=== PATIENT | male | born 1980 | race African-American/Black ===

== ENCOUNTER 2017-07-07 09:51 | Inpatient (IN) | payer BC ==
[~2017-07-07] VITALS: Ht 170.2 cm; Wt 102.0 kg
--- NOTE | ~2017-07-07 | CT16 ---
[facility] A Service of [facility] & [facility] RADIOLOGY TEXT RESULTS PATIENT: LURDES VANEGAS LOCATION: C3A 306-01 : [birth year] UNIT #: [id number] AGE: [address]: Abhay Sewell MD SEX: M ORDER DR: [id number] [facility] [address] [place], [place] [address] [id number] MR#: [id number] Acc #: [id number] NAME: LURDES VANEGAS : 1980 SEX: M STUDY DATE/TIME: 07/07/2017 UNIT: C3A PCU ROOM: 306 STUDY DESCRIPTION: CT Angio Chest for PE Attending Physician: Abhay Sewell M.D. Ordering Physician: Summer Samuel M.D. Primary Care Physician: Primary Care Physician No MEDICAL IMAGING REPORT This report is preliminary unless electronic signature is present EXAM CT angiogram of the chest with PE protocol 07/07/2017 1204 hours HISTORY 37-year-old man with complaint of leg pain for 2 weeks with shortness of air and chest pain for 2 days. Evaluate for pulmonary embolism. COMPARISON Chest film 07/07/2017. TECHNIQUE Dynamic helical CT angiographic images were obtained from the thoracic inlet through the adrenal glands. 3-D sagittal and coronal reconstructions were performed. Contrast was Isovue-370 80 mL IV. Total exam DLP 693 mGy-cm. This CT examination was performed with one or more of the following radiation dose reduction techniques: automatic exposure control, adjustment of mA and/or kV according to patient size, and iterative reconstruction. FINDINGS Images through the thoracic inlet demonstrate no thyroid mass or enlargement. There is no supraclavicular adenopathy. Images through the chest demonstrate diagnostic quality opacification of the pulmonary arteries. The images are slightly degraded by respiratory motion artifact. Pulmonary arteries are normal in caliber. There are no filling defects seen to suggest the presence of pulmonary emboli. The aorta is not well opacified but is normal in caliber. Cardiac chambers are enlarged.Pericardium and esophagus appear normal. There is no pathologic adenopathy. There are tiny superior and anterior mediastinal lymph nodes all measuring less than 5 mm felt likely benign. Lung window images demonstrate moderate underlying centrilobular emphysema STS. [facility] A Service of [facility] & [facility] RADIOLOGY TEXT RESULTS PATIENT: LURDES VANEGAS LOCATION: C3A 306-01 : [birth year] UNIT #: [id number] AGE: [address]: Abhay Sewell MD SEX: M ORDER DR: with patchy ground-glass and linear densities in the upper, mid and lower lungs. Findings suggest the presence of infection and/or edema. There is no dense consolidation or pleural fluid. Limited views through the upper abdomen demonstrate no liver or splenic lesion. The adrenal glands are normal. IMPRESSION 1. No evidence of pulmonary embolism. Normal caliber aorta. 2. Cardiac chambers are enlarged. No pericardial or pleural fluid. 3. The lungs demonstrate underlying emphysematous change with mosaic pattern of lucency. There are patchy ground-glass and linear changes throughout both lungs involving the upper, mid and lower lungs. The appearance favors edema over infection. No pleural effusion. STAT * RESULT Dictated by... Rachel Gillespie M.D. THIS IS AN ELECTRONICALLY VERIFIED REPORT Rachel Gillespie M.D. at 07/08/2017 1:49 PM BARRIE/simone TD: 07/07/2017 12:36 JOB #: [id number] MEDICAL IMAGING REPORT Page 1 of 1 COPY
--- NOTE | ~2017-07-07 | CR72 ---
[facility] A Service of [facility] & [facility] RADIOLOGY TEXT RESULTS PATIENT: LURDES VANEGAS LOCATION: [facility] 306-01 : [birth year] UNIT #: [id number] AGE: [address]: Abhay Sewell MD SEX: M ORDER DR: [id number] [facility] [address] [place] [address] [place], [place] [address] [id number] I MR#: [id number] Acc #: [id number] NAME: LURDES VANEGAS : 1980 SEX: M STUDY DATE/TIME: 07/07/2017 10:29 UNIT: C3A U ROOM: 306 STUDY DESCRIPTION: CR Chest Single View Portable Attending Physician: Abhay Sewell M.D. Ordering Physician: Summer Samuel M.D. Primary Care Physician: Primary Care Physician No MEDICAL IMAGING REPORT This report is preliminary unless electronic signature is present EXAM Portable chest 07/07 INDICATIONS Shortness of air and chest pain and left leg pain for 2 weeks. TECHNIQUE AP portable views of the chest were obtained COMPARISON No comparison FINDINGS Heart is enlarged. There is pulmonary edema. No pneumothorax is seen. IMPRESSION Cardiomegaly and pulmonary edema. Dictated by... Tomas Lorenzo Jr., M.D. THIS IS AN ELECTRONICALLY VERIFIED REPORT Tomas Lorenzo Jr., M.D. at 07/08/2017 8:29 AM RLK/sharri TD: 07/07/2017 18:48 JOB #: [id number] MEDICAL IMAGING REPORT Page 1 of 1 COPY
--- NOTE | ~2017-07-07 | HP ---
Unit #: [id number] #: [id number] Patient: LURDES VANEGAS [id number] [address] [place], [place] [address] [id number] MR#: [id number] NAME: LURDES VANEGAS ROOM: 52740 Age: 37 Sex: M Admission Date: 07/07/2017 : 1980 Attending Physician: Abhay Sewell M.D. HISTORY AND PHYSICAL CHIEF COMPLAINT Chest pain and left lower extremity pain. HISTORY OF PRESENT ILLNESS This is a 37-year-old male with a prior history of diabetes mellitus, hypertension, tobacco abuse, obstructive sleep apnea, and cocaine abuse. He has been seen in multiple ERs in the last two months for lower extremity pain. He was seen in [facility] ER on July 01 for left lower extremity pain, and at that time venous Doppler of the left lower extremity was negative for DVT. He also has a history of CHF with a hospital admission reportedly in May 2017 at [facility] for CHF. Per the patient, he underwent a cardiac cath at [facility] in [place], [place], in January 2017 which showed normal coronary arteries and a "weakened" heart. He presented to the ER with reports of left leg pain ongoing for two weeks and intermittent chest pains described as sharp, stabbing left chest pains occurring at rest. The chest pains were accompanied with nausea and diaphoresis. He denies radiating pains or shortness of breath. The pains resolved spontaneously within minutes. He also reports increasing shortness of breath with dyspnea on exertion, as well as orthopnea and PND. He denies abdominal swelling or lower extremity edema. His BNP in the ER is 156. Chest x-ray showed cardiomegaly with pulmonary edema. A CT of the chest was negative for PE but did show pulmonary edema with cardiomegaly. His troponin was negative for ischemia. EKG revealed some tachycardia with nonspecific T wave abnormalities but no acute ischemic changes. His blood pressure was elevated in the ER at 160/103 to 157/115. He was started on a nitroglycerin drip, and his blood pressure has improved into the 150s/80s. 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 He has not been taking medications. PAST MEDICAL HISTORY 1. Diabetes mellitus. 2. Hypertension. 3. Tobacco abuse. 4. History of cocaine abuse. 5. Obstructive sleep apnea, does not use CPAP. 6. Left lower extremity pain with a negative venous Doppler July 01, 2017, at outside hospital. 7. CHF with recent admission to [facility] in May 2017 per patient (records currently not available). 8. Cardiac cath January 2017 with normal coronaries and weak heart per Unit #: [id number] #: [id number] Patient: LURDES VANEGAS patient (records currently not available). 9. Medical noncompliance. PAST SURGICAL HISTORY He had a cardiac cath in January 2017. SOCIAL HISTORY He lives with his significant other. He rarely drinks alcohol. He smokes one-half pack per day. He states he last used cocaine six to eight months ago. FAMILY HISTORY He denies a family history of premature coronary artery disease. ALLERGIES No known drug allergies. HOME MEDICATIONS No home medications per patient. REVIEW OF SYSTEMS A 10-point review of systems was conducted and is otherwise negative except for what was stated in the HPI. PHYSICAL EXAMINATION VITAL SIGNS: Temperature 98.4, heart rate 111, respiratory rate 24, blood pressure 140/66. GENERAL: This is a 37-year-old male resting in bed in no acute distress. HEENT: Head is atraumatic and normocephalic. Pupils are equal and reactive to light. Mucous membranes are moist and intact. NECK: Supple. Trachea is midline. No JVD. LUNGS: Clear and diminished in bases. Nonlabored respirations. CARDIOVASCULAR: S1 and S2, regular rate and rhythm. No significant murmurs, rubs, or gallops. ABDOMEN: Soft, nontender, nondistended. Positive bowel sounds. EXTREMITIES: Pulses are palpable. No pedal edema. Left lower leg tenderness from thigh to ankle is present. NEUROLOGIC: Drowsy, but easily arousable. Oriented x3. Moves all extremities and follows commands without difficulty. DIAGNOSTIC STUDIES LABORATORY: Sodium 135, potassium 4.4, chloride 101, BUN 11, creatinine 1, glucose 335. Hemoglobin 15.2, hematocrit 44.7, white blood cell count 10.7, platelets 263,000. TSH 1.82. AST 32, ALT 35, alkaline phosphatase 89. Lipid profile: Cholesterol 146, triglycerides 61, LDL 94, HDL 40. BNP 156. Point of care troponin less than 0.05. Urinalysis had greater than 1000 glucose. Urine tox was negative. IMAGING: Chest x-ray showed cardiomegaly with pulmonary edema. CT of the chest was negative for PE and showed cardiomegaly with pulmonary edema. CARDIOLOGY: EKG showed sinus tachycardia with nonspecific T wave abnormalities. ASSESSMENT 1. Acute on chronic congestive heart failure, mild. 2. Chest pain with reportedly normal coronaries by catheterization in Unit #: [id number] #: [id number] Patient: LURDES VANEGAS January 2017 (records currently not available). 3. Hypertension, uncontrolled. 4. Diabetes mellitus, uncontrolled. 5. Left leg pain. 6. Tobacco abuse. PLAN He is currently chest pain free. He is on a nitroglycerin drip for elevated blood pressures. We will discontinue the nitroglycerin drip. Start beta jordana and SHARAD inhibitor. Consider nitrate if chest pain reoccurs. We will gently diurese, although he is only mildly fluid overloaded. Check echo and trend enzymes. Obtain cath results from outlying hospital. We will maintain strict I/Os and daily weights. Dictated by Jagruti Jesnen APRN for Abhay Sewell M.D. MARIYA/ian TD: 07/07/2017 16:34 JOB #: [id number] HISTORY AND PHYSICAL Page 1 of 1 X X HISTORY AND PHYSICAL
--- NOTE | ~2017-07-07 | EKG ---
PATIENT: ULRDES VANEGAS UNIT #: [id number] Ventricular Rate: 114 BPM Atrial Rate: 114 BPM P-R Interval: 142 ms QRS Duration: 88 ms Q-T Interval: 344 ms QTC Calculation(Bezet): 474 ms P [place]: 71 degrees Calculated R [place]: -29 degrees Calculated T [place]: 88 degrees Diagnosis Line: Sinus tachycardia Diagnosis Line: Nonspecific T wave abnormality Diagnosis Line: Abnormal ECG Diagnosis Line: No previous ECGs available Diagnosis Line: Confirmed by RADHA BLAIR MD ([id number]) on Diagnosis Line: 07/09/2017 10:49:33 AM INTERPRETING MD: ROSSY KUMAR
--- NOTE | ~2017-07-07 | DS ---
Unit #: [id number] #: [id number] Patient: LURDES VANEGAS [id number] [address] [address] [id number] MR#: [id number] NAME: LURDES VANEGAS ROOM: 306 Age: 37 Sex: M Admission Date: 07/07/2017 : 1980 Discharge Date: 07/11/2017 Attending Physician: Abhay Sewell M.D. Primary Care Physician: Primary Care Physician No DISCHARGE SUMMARY REASON FOR CONSULTATION Diabetes management. HISTORY OF PRESENT ILLNESS The patient is a 37-year-old male with a past medical history of diabetes, hypertension, tobacco abuse, obstructive sleep apnea, cocaine abuse, and with history of acute on chronic CHF, being admitted to the Cardiology Service and Medicine consult has been placed for the diabetes management. The patient has a history of diabetes since 2007 and was on Lovenox and NovoLog. However, the patient stopped taking those medications for the last few months. The patient also complains of the pain in the left lower extremity mainly in the back of the thigh and the back of the calf muscles. The patient had a venous Doppler that is negative for DVT. PAST MEDICAL HISTORY History of diabetes, hypertension, tobacco abuse, history of cocaine abuse, obstructive sleep apnea. PAST SURGICAL HISTORY Cardiac cath in January 2017. SOCIAL HISTORY Lives with his significant other. He rarely drinks alcohol. He smokes one-half pack per day. He states last cocaine was 6 to 8 months ago. FAMILY HISTORY Denies any history of coronary artery disease. ALLERGIES No known drug allergies. HOME MEDICATIONS No medications per patient. REVIEW OF SYSTEMS Positive for the leg pain. Positive for the numbness and tingling in the left lower extremities and all other systems have been reviewed are negative. Positive for chest pain. Positive for shortness of air. PHYSICAL EXAMINATION GENERAL: The patient is lying on bed, not in acute distress. VITAL SIGNS: Temperature is 98, blood pressure is 145/89, pulse is 85, Unit #: [id number] #: [id number] Patient: LURDES VANEGAS respirations 20. HEENT: Head, atraumatic, normocephalic. Pupils are equal, round, and reactive to light and accommodation. Extraocular movements are intact. NECK: Positive for JVD. Neck is supple. LUNGS: Diffuse air entry at the bases. Positive for rales. HEART: Positive for regular rate and rhythm. Positive for the murmur. ABDOMEN: Soft. Positive bowel sounds. EXTREMITIES: No cyanosis. No clubbing. No edema. NEUROLOGIC: Alert, awake, and oriented. No gross focal motor deficit. DIAGNOSTIC STUDIES LABORATORY RESULTS: Sugar is running 246 to 242 and sodium is 138, potassium 4.2, chloride 104, bicarb 25, glucose 252, BUN 23, creatinine 0.8, calcium 9.7. CBC: WBC 11.9, hemoglobin 15.7, hematocrit 46.9, platelets 269. ASSESSMENT 1. Nonischemic cardiomyopathy. 2. Uncontrolled diabetes mellitus. PLAN Continue with Lasix drip and continue with high dose sliding scale and we will add the Lantus at bedtime, then we will titrate up with sugars. Check the hemoglobin A1c and we will add, for neuropathy likely secondary to uncontrolled diabetes, with Neurontin and further recommendations will follow. Dictated by... Pura Rider/madison TD: 07/12/2017 06:00 JOB #: [id number] DISCHARGE SUMMARY Page 1 of 1 X TATYANA TAYLOR MD X DISCHARGE SUMMARY
--- NOTE | ~2017-07-07 | DS ---
Unit #: [id number] #: [id number] Patient: LURDES VANEGAS [id number] [address] [place], [place] [address] [id number] I MR#: [id number] NAME: LURDES VANEGAS ROOM: 306 Age: 37 Sex: M Admission Date: 07/07/2017 : 1980 Discharge Date: 07/11/2017 Attending Physician: Abhay Sewell M.D. DISCHARGE SUMMARY DISCHARGE DIAGNOSES 1. Acute on chronic systolic congestive heart failure, now compensated. 2. Normal coronary arteries per recent cardiac catheterization in January 2017. Ejection fraction 10% to 15%. 3. A 2D echocardiogram on July 07, 2017, revealed an ejection fraction of 15% to 20%, severe generalized hypokinesis of the LV, moderate LVH, restrictive physiology with grade 3 diastolic dysfunction, mild mitral regurgitation, mild aortic regurgitation, trace pulmonic regurgitation. 4. Hypertension. 5. Diabetes mellitus type 2, uncontrolled. 6. Obstructive sleep apnea. 7. Left leg pain probably from neuropathy. 8. Noncompliance. 9. History of cocaine abuse. DISCHARGE MEDICATIONS 1. Metoprolol tartrate 50 mg p.o. b.i.d. 2. Furosemide 40 mg p.o. in the morning and 20 mg at night. 3. Lovastatin 20 mg p.o. at bedtime. 4. Levemir 10 units subcutaneous b.i.d. 5. Aspirin 81 mg p.o. daily. 6. Lisinopril 10 mg p.o. daily, start on July 12, 2017. 7. Potassium chloride 20 mEq p.o. daily. 8. Metformin 500 mg p.o. b.i.d. HOSPITAL COURSE This is a 37-year-old male with a past medical history of hypertension, diabetes, obstructive sleep apnea, cocaine abuse, and tobacco abuse. He has been admitted to the hospital multiple times recently for lower extremity pain. He was seen at [facility] on July 01, 2017, with left lower extremity pain. Venous Doppler was negative for DVT. He also has a history of congestive heart failure. He was seen at [facility] in May 2017 for congestive heart failure. Previous to that, he had a cardiac catheterization at [facility] in [place], [place], in January 2017, which revealed normal coronary arteries per documentation. The patient presented to the emergency department on July 07, 2017, with complaints of left leg pain for two weeks and intermittent chest pain described as sharp, stabbing pain. BNP was 156. Chest x-ray revealed cardiomegaly with some pulmonary edema. CT of the chest of negative for PE but did show pulmonary edema. Initial cardiac enzymes were negative. EKG revealed sinus tachycardia but nonspecific ST and T wave changes. Unit #: [id number] #: [id number] Patient: LURDES VANEGAS Blood pressure was elevated on arrival at 160/103 mmHg. He was initially started on nitroglycerin drip. His blood pressure improved. He was diuresed for acute on chronic congestive heart failure. A 2D echo was obtained on July 07, 2017, and revealed an ejection fraction of 15% to 20%. Please see further details as noted above. He was started on Entresto, but there were issues with insurance and cost, and therefore, the Entresto was discontinued. He was placed on lisinopril instead. He is on a beta jordana. His diuretics have been changed to oral dosing. He has diuresed well, and his volume status is stable. His hemoglobin A1c was elevated at 13.1. The hospitalist was consulted, and he was started on sliding scale protocol. His long-acting insulin was increased. Upon discharge, he has been started on metformin and long-acting insulin. Glucose levels remain high but are improved. Creatinine is 1 with a BUN of 19. Magnesium is 1.9. Serial cardiac enzymes were negative. He has ambulated without complaints and will be discharged home. A LifeVest has been ordered but is pending approval. He has been encouraged to be compliant with medications and followup. He will need repeat 2D echocardiogram in the office in three months. If his ejection fraction is less than or equal to 35%, he should be evaluated for an AICD. Of note, the patient does not have any money to fill his medications. The case management assistant has been consulted, and he will be gifted with medications until he can follow up. DIAGNOSTIC STUDIES LABORATORY: White blood cell count 10.9, hemoglobin 16.9, hematocrit 49.8, platelets 315,000. Sodium 135, potassium 4.1, chloride 100, CO2 of 27, BUN 19, creatinine 1, glucose 315, magnesium 1.9. INR 1. AST 32, ALT 35, alkaline phosphatase 89. Troponin 0.04 and 0.05. BNP 156. A1c 13.1. Total cholesterol 146, triglycerides 61, LDL 94, HDL 40. IMAGING: CT of the chest revealed no PE. Emphysema. Pulmonary edema. Chest x-ray on July 07 revealed pulmonary edema and cardiomegaly. CARDIOLOGY: EKG revealed sinus tachycardia with nonspecific ST and T wave changes. TREE CUTTER Dr. Eason with HIPS. PHYSICAL EXAMINATION GENERAL: This is a 37-year-old male in no acute distress. SKIN: Warm and dry. NECK: Supple. No jugular vein distention. No hepatojugular reflux. Normal carotid upstrokes. No carotid bruits auscultated. HEART: S1 and S2. Regular rate and rhythm. No murmurs, rubs, or gallops. LUNGS: Bilateral breath sounds have good air entry through all lung hernandez. Respirations even and nonlabored. No rales, rhonchi, or wheezes. ABDOMEN: Soft, nontender, and nondistended. Positive bowel sounds auscultated x4 quadrants. No ascites noted. EXTREMITIES: Bilateral lower extremities have trace pretibial pitting edema. DP and PT pulses 2+. Capillary refill less than 3 seconds. DISCHARGE INSTRUCTIONS 1. The patient will be discharged home today. Unit #: [id number] #: [id number] Patient: LURDES VANEGAS 2. Follow up with primary care provider in one to two weeks. 3. Follow up with Dr. Sewell in two to four weeks. 4. LifeVest pending insurance approval. 5. CHF education provided including fluid restriction, low sodium, and daily weights. The patient has been instructed to call for weight gain greater than three pounds, worsening shortness of breath, or lower extremity edema. 6. 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 7. He will need a hemoglobin A1c in three months. 8. He will need a 2D echocardiogram in three months to reassess LV function. 1. Dictated by... Chiqui Cunningham APRN for Pura Vargas/ian TD: 07/18/2017 18:29 JOB #: [id number] DISCHARGE SUMMARY Page 1 of 1 X X DISCHARGE SUMMARY
[2017-07-07 10:43] LABS: BASOPHIL# 0.2 X10e3 (0-0.3); BASOPHIL% 1.5 % (0-2.5); EOSINOPHIL# 0.3 X10e3 (0-0.7); HEMATOCRIT 44.7 % (38.0-50.0); HEMOGLOBIN 15.2 gm/dL (13.0-16.0); LYMPHOCYTE# 2.4 X10e3 (1.0-3.5); LYMPHOCYTE% 22.6 % (17.0-45.0); MEAN CELL VOLUME 86.9 FL (83-96); MEAN CORPUSCULAR HEMOGLOBIN 29.5 PG (28-34); MEAN CORPUSCULAR HGB CONC 33.9 g/dL (30-36); MEAN PLATELET VOLUME 8.8 FL (6.5-11.5); MONOCYTE# 0.6 X10e3 (0-1.0); MONOCYTE% 5.5 % (3.0-12.0); NEUTROPHIL# 7.2 X10e3 (1.5-7.1); NEUTROPHIL% 67.4 % (40-75); PLATELET COUNT 263 X10e3 (140-420); RED BLOOD COUNT 5.14 X10e (3.90-5.60); RED CELL DISTRIBUTION WIDTH 12.6 % (11.0-15.5); WHITE BLOOD COUNT 10.7 X10e3 (4.0-10.5)
[2017-07-07 10:48] LABS: DIFF IND NO
[2017-07-07 11:05] LABS: PARTIAL THROMBOPLASTIN TIME 29.8 SECONDS (23.5-31.3); PROTHROMBIN TIME (PATIENT) 11.2 SECONDS (10.0-11.7)
[2017-07-07 11:27] LABS: ALBUMIN SERUM 4.2 g/dL (3.5-5.0); BILIRUBIN, DIRECT 0.3 mg/dL (0.0-0.2); BILIRUBIN,INDIRECT 0.9 mg/dL (0.0-0.9); BILIRUBIN,TOTAL 1.2 mg/dL (0.2-2.0); CALCIUM SERUM 9.3 mg/dL (8.4-10.2); MAGNESIUM 1.6 mg/dL (1.6-3.0); POTASSIUM 4.4 mmol/L (3.5-5.1); PROTEIN TOTAL SERUM 7.1 g/dL (6.0-8.3)
[2017-07-07] MEDS ORDERED: NO MEDICATIONS (11:47)
[2017-07-07 11:48] LABS: POC - CKMB 1.6 ng/mL (0.0-7.9); POC - TROPONIN <0.05 ng/mL (<=0.05)
[2017-07-07 11:51] LABS: URINE SOURCE CLEAN CATCH
[2017-07-07 12:01] LABS: URINE APPEARANCE CLEAR; URINE BILIRUBIN NEG (NEG); URINE BLOOD NEG (NEG); URINE COLOR YELLOW; URINE GLUCOSE >1000 MG/DL (NEG); URINE KETONE NEG (NEG); URINE LEUKOCYTE ESTERASE NEG (NEG); URINE NITRATE NEG (NEG); URINE PH 5.5 (5-8); URINE PROTEIN TRACE (NEG); URINE SPECIFIC GRAVITY 1.048 (1.003-1.035)
[2017-07-07 12:10] LABS: CULTURE INDICATED? NO
[2017-07-07 12:11] LABS: AMPHETAMINE NEG (NEG); BARBITURATES NEG (NEG); BENZODIAZEPINES NEG (NEG); COCAINE NEG (NEG); MARIJUANA NEG (NEG); OPIATES NEG (NEG); TRICYCLIC ANTIDEPRESSANTS NEG (NEG); U METHADONE NEG (NEG)
[2017-07-07 12:19] LABS: POC - CKMB 1.7 ng/mL (0.0-7.9); POC - TROPONIN <0.05 ng/mL (<=0.05)
[2017-07-07 21:10] LABS: %MB 2.9 % (0.0-4.0)
[2017-07-08 03:13] LABS: HEMATOCRIT 46.4 % (38.0-50.0); HEMOGLOBIN 15.4 gm/dL (13.0-16.0); MEAN CELL VOLUME 86.8 FL (83-96); MEAN CORPUSCULAR HEMOGLOBIN 28.7 PG (28-34); MEAN CORPUSCULAR HGB CONC 33.1 g/dL (30-36); RED BLOOD COUNT 5.35 X10e (3.90-5.60); RED CELL DISTRIBUTION WIDTH 12.8 % (11.0-15.5); WHITE BLOOD COUNT 11.6 X10e3 (4.0-10.5)
[2017-07-08 03:39] LABS: BUN/CREATININE RATIO 18.88; CREATININE SERUM 0.9 mg/dL (0.6-1.4); POTASSIUM 3.7 mmol/L (3.5-5.1)
[2017-07-08 04:05] LABS: %MB 2.7 % (0.0-4.0); MB 2.5 ng/ml
[2017-07-09 05:35] LABS: HEMATOCRIT 46.9 % (38.0-50.0); HEMOGLOBIN 15.7 gm/dL (13.0-16.0); MEAN CELL VOLUME 86.7 FL (83-96); MEAN CORPUSCULAR HGB CONC 33.4 g/dL (30-36); MEAN PLATELET VOLUME 8.9 FL (6.5-11.5); RED BLOOD COUNT 5.41 X10e (3.90-5.60); RED CELL DISTRIBUTION WIDTH 12.7 % (11.0-15.5); WHITE BLOOD COUNT 11.9 X10e3 (4.0-10.5)
[2017-07-09 07:13] LABS: BUN/CREATININE RATIO 28.75; CALCIUM SERUM 9.7 mg/dL (8.4-10.2); CREATININE SERUM 0.8 mg/dL (0.6-1.4); GLOM FILT RATE Estimated 132.3 mL/min (>60); POTASSIUM 4.2 mmol/L (3.5-5.1)
[2017-07-10 07:06] LABS: CALCIUM SERUM 9.4 mg/dL (8.4-10.2); MAGNESIUM 1.7 mg/dL (1.6-3.0); POTASSIUM 4.1 mmol/L (3.5-5.1)
[2017-07-11 05:54] LABS: HEMATOCRIT 49.8 % (38.0-50.0); HEMOGLOBIN 16.9 gm/dL (13.0-16.0); MEAN CELL VOLUME 86.5 FL (83-96); MEAN CORPUSCULAR HEMOGLOBIN 29.4 PG (28-34); MEAN PLATELET VOLUME 8.9 FL (6.5-11.5); RED BLOOD COUNT 5.76 X10e (3.90-5.60); RED CELL DISTRIBUTION WIDTH 12.7 % (11.0-15.5); WHITE BLOOD COUNT 10.9 X10e3 (4.0-10.5)
[2017-07-11 06:40] LABS: CALCIUM SERUM 9.1 mg/dL (8.4-10.2); MAGNESIUM 1.9 mg/dL (1.6-3.0); POTASSIUM 4.1 mmol/L (3.5-5.1)
[2017-07-11] MEDS ORDERED: LOPRESSOR PO (10:04)
[2017-07-11] MEDS ORDERED: LASIX20 MG PO (10:05)
[2017-07-11] MEDS ORDERED: FUROSEMIDE40 MG PO (10:05)
[2017-07-11] MEDS ORDERED: LIPITOR40 MG PO (10:05)
[2017-07-11] MEDS ORDERED: LEVEMIR100 UNITS/ SUBQ (10:06)
[2017-07-11] MEDS ORDERED: ASPIRIN81 MG PO (10:07)
[2017-07-11] MEDS ORDERED: LISINOPRIL10 MG PO (10:08)
[2017-07-11] MEDS ORDERED: K-DUR20 ME1 PO (10:10)
[2017-07-11] MEDS ORDERED: GLUCOPHAGE500 MG PO (10:10)
[2017-07-11] MEDS ORDERED: LOVASTATIN20 M1 PO (11:54)
== END 2017-07-11 14:17 | disposition home or self-care (01) | DRG 293 ==
LOC: CED 09:51 → CEDOF 13:20 → C3A PCU 13:20 → CEDOF 13:49 → CED 13:49 → C3A PCU 18:44 → CEDOF 18:44 → C3A PCU 18:44
PROVIDERS: Emergency Medicine; Nurse Practitioner Family
PROC: B32TYZZ Computerized Tomography (CT Scan) of Left Pulmonary Artery using Other Contrast (ICD-10-PCS; principal; 2017-07-07)
PROC: B32SYZZ Computerized Tomography (CT Scan) of Right Pulmonary Artery using Other Contrast (ICD-10-PCS; 2017-07-07)
PROC: B24BZZZ Ultrasonography of Heart with Aorta (ICD-10-PCS; 2017-07-07)
DX: I11.0 Hypertensive heart disease with heart failure (principal); E11.65 Type 2 diabetes mellitus with hyperglycemia; I42.8 Other cardiomyopathies; I50.23 Acute on chronic systolic (congestive) heart failure; Z79.4 Long term (current) use of insulin; F17.200 Nicotine dependence, unspecified, uncomplicated; G47.33 Obstructive sleep apnea (adult) (pediatric); M79.605 Pain in left leg; Z91.19 Patient's noncompliance with other medical treatment and regimen
CPT/HCPCS: 36415; 71010; 71275; 80048; 80061; 80076; 80307; 81003; 82010; 82550; 82553; 82947; 83036; 83735; 83880; 84443; 84484; 85025; 85027; 85610; 85730; 93005; 93306; 96365; 96366; 99285; J0360; J1815; J1940; J3475; Q9967